=== PATIENT | female | born 1945 | race Hispanic/Latino ===

== ENCOUNTER 2018-12-20 10:04 | Inpatient (IN) | payer MEDICARE ==
[~2018-12-20 10:04] MED LIST: ZEMURON IV ONE
[2018-12-20] MEDS ORDERED: ZOFRAN IV PRN (11:14)
[2018-12-20] MEDS ORDERED: SODIUM CHLORIDE FLUSH SYRINGE 10 ML IV PRN (11:14)
[2018-12-20] MEDS ORDERED: MORPHINE IV PRN (11:14)
[2018-12-20] MEDS ORDERED: NACL 0.9% 1000 ML 1,000 ML IV SCH (12:00)
[2018-12-20] MEDS ORDERED: ANCEF/STERILE WATER 2 GM/20 ML 2 GM/20 ML SYRINGE IV NR (12:00)
--- NOTE | 2018-12-20 18:09 | History and Physical Report ---
History of Present Illness Date of examination: 12/20/18 Date of admission: 12/20/2018 Chief complaint: Left foot pain History of present illness: The patient is a 73-year-old female with a history of tobacco abuse and peripheral vascular disease who had an aorto bifemoral bypass in 2002. She states that approximately 1 month ago she began experiencing pain in her left foot. Over the past week the pain has progressively worsened and is associated with numbness and blue toes. On Monday she went to her primary care physician and upon evaluation he sent her to the emergency department at the [facility] in [place]. Her workup there included an ultrasound of her bilateral lower extremities which revealed occlusion of her left limb of aortobifemoral bypass as well as bilateral SFA occlusions. She also had a CTA of her abdomen and pelvis with runoff that confirmed these findings. Additionally she had an echo for heart that revealed normal heart function. She has no additional complaints at this time. Past History Past Surgical History: cholecystectomy, hysterectomy ([facility]), total hip replacement, Other (Aortobifemoral Bypass (2002), back surgery x 4) Social history: smoking. denies: alcohol abuse, prescription drug abuse, IV drug use Medications and Allergies Allergies Allergy/AdvReac Type Severity Reaction Status Date / Time prednisone Allergy Unknown Verified 12/20/18 11:49 morphine AdvReac confusion Verified 12/20/18 11:49 Active Meds: Active Medications Acetaminophen (Tylenol) 650 mg PO Q4H PRN PRN Reason: Pain MILD(1-3)/Fever >100.5/SKELTON Sodium Chloride (Nacl 0.9% 1000 Ml) 1,000 mls @ 100 mls/hr IV DIRECT BELEN Cefazolin Sodium (Ancef/Sterile Water 2 Gm/20 Ml) 2 gm in 20 mls @ 80 mls/hr IV PREOP NR; Protocol Stop: 12/20/18 23:14 Ondansetron HCl (Zofran) 4 mg IV Q8H PRN PRN Reason: Nausea And Vomiting Sodium Chloride (Sodium Chloride Flush Syringe 10 Ml) 10 ml IV BID BELEN Sodium Chloride (Sodium Chloride Flush Syringe 10 Ml) 10 ml IV PRN PRN PRN Reason: LINE FLUSH Review of Systems All systems: negative Exam - Constitutional General appearance: Present: no acute distress - EENT ENT: hearing decreased - Neck Neck: Present: supple - Cardiovascular Rhythm: regular - Extremities Extremities: pulses intact (right femoral pulse) Extremity abnormal: cyanosis (of all toes on the left foot), cold (all left toes are cool), pulses diminished (nonpalpable left femoral pulse, no palpable pedal pulses) - Abdominal General gastrointestinal: Present: soft, non-tender (well-healed transverse incision) Female genitourinary: Present: deferred - Rectal Rectal Exam: deferred - Musculoskeletal Musculoskeletal: left sided weakness (left foot motor intact however decreased with minimal toe movement) - Neurologic Neurologic: other (sensation intact left foot) Assessment and Plan The patient is a 73-year-old female with a history of an aortobifemoral bypass in 2002 with occlusion of the left limb of the bypass. She has subacute ischemia with a threatened limb. She is in need of improved arterial flow and requires a right femoral artery to left femoral artery bypass to improve arterial flow to the profunda artery. I discussed this with the patient as well as her and children. They all expressed understanding including the risk, benefits, and alternatives. They have chosen to proceed with the operation at this time.
[2018-12-20] MEDS ORDERED: DIPRIVAN 10 MG/ML IV ONE (19:29)
[2018-12-20] MEDS ORDERED: SUBLIMAZE ONE (19:29)
[2018-12-20] MEDS ORDERED: AMIDATE IV ONE (19:29)
[2018-12-20] MEDS ORDERED: NACL P/F VIAL (10 ML) 10 ML ONE ×2 (19:32→21:24)
[2018-12-20 20:05] LABS: Basophils # (Auto) 0.1 K/mm3 (0.0-0.1); Basophils % (Auto) 0.9 % (0.0-1.8); Eosinophils % (Auto) 0.5 % (0.0-4.3); Hematocrit 40.1 % (30.3-42.9); Hemoglobin 13.5 gm/dl (10.1-14.3); Lymphocytes # (Auto) 2.5 K/mm3 (1.2-5.4); Lymphocytes % (Auto) 30.8 % (13.4-35.0); Mean Corpuscular HGB Conc 34 % (30-34); Mean Corpuscular Volume 101 fl (79-97); Monocytes # (Auto) 0.5 K/mm3 (0.0-0.8); Monocytes % (Auto) 6.8 % (0.0-7.3); Platelet Count 308 K/mm3 (140-440); Red Blood Count 3.95 M/mm3 (3.65-5.03); Red Cell Distribution Width 16.3 % (13.2-15.2)
[2018-12-20 20:15] LABS: INR 0.94 (0.87-1.13)
[2018-12-20 20:16] LABS: Partial Thromboplastin Time 22.2 Sec. (24.2-36.6)
[2018-12-20] MEDS ORDERED: LACTATED RINGERS 1,000 ML ONE (20:47)
[2018-12-20] MEDS ORDERED: NACL 0.9% 500 ML 500 ML ONE ×2 (21:09→21:23)
[2018-12-20] MEDS ORDERED: NITROGLYCERIN SYRINGE 3 ML ONE (21:10)
[2018-12-20] MEDS ORDERED: NACL 0.9% 500 ML IRRIGATION ONE (21:15)
[2018-12-20] MEDS ORDERED: HEPARIN 10,000 UNITS/10 ML IR ONE (21:15)
[2018-12-20] MEDS ORDERED: NACL 0.9% IR ONE (21:15)
[2018-12-20] MEDS ORDERED: NACL BACTERIOSTATIC INFILTRATI ONE (21:15)
[2018-12-20] MEDS ORDERED: RIFADIN IV ONE (21:15)
[2018-12-20 21:17] LABS: BUN/Creatinine Ratio 39; Blood Urea Nitrogen 27 mg/dL (7-17); Calcium 10.9 mg/dL (8.4-10.2); Hemolysis Index 7
[2018-12-20] MEDS ORDERED: HEPARIN 10,000 UNITS/10 ML ONE (21:23)
[2018-12-20] MEDS ORDERED: RIFADIN ONE (21:24)
--- NOTE | 2018-12-20 22:32 | Anesthesia Consultation ---
Anesthesia Consult and Med Hx Date of service: 12/20/18 - Airway Anesthetic Teeth Evaluation: Poor ROM Head & Neck: Adequate Mental/Hyoid Distance: Adequate Mallampati Class: Class II Intubation Access Assessment: Probably Good - Pulmonary Exam CTA: No (diffuse wheezing) - Cardiac Exam Cardiac Exam: No Murmur (irregular rhythm) - Pre-Operative Health Status ASA Pre-Surgery Classification: ASA3, Emergency Proposed Anesthetic Plan: General - Pulmonary Hx Smoking: Yes (1/4PPD x55yrs) SOB: Yes (patient denies but family reports dyspnea with ADLs) COPD: Yes (patient denies but noted in previous records on paper chart) Home Oxygen Therapy: No - Cardiovascular System Hx Hypertension: Yes (takes multiple antihypertensive agents) Hx Heart Attack/AMI: No Hx Percutaneous Transluminal Coronary Angioplasty (PTCA): No Hx Cardia Arrhythmia: Yes (outside EKG read NSR (actual EKG not available) but A-fib noted here) Hx Pacemaker: No Hx Internal Defibrillator: No Hx Peripheral Vascular Disease: Yes (PAD s/p previous fem-fem bypass w/ occluded graft and ischemic limb) - Central Nervous System Hx Seizures: No CVA: No - Gastrointestinal Hx Gastroesophageal Reflux Disease: Yes (controlled) - Endocrine Hx Renal Disease: No Hx Liver Disease: No Hx Insulin Dependent Diabetes: No Hx Non-Insulin Dependent Diabetes: No Hx Thyroid Disease: No - Hematic Hx Anemia: No - Other Systems Hx Obesity: No - Additional Comments Anesthesia Medical History Comments: No hx anesthetic complications. Reviewed medical records on paper chart from [facility]. Discussed anesthetic plan, including possible blood transfusion and possible post-op ventilation and ICU admission with patient and family.T&C [id number] ordered on hold for OR.
--- NOTE | 2018-12-20 22:35 | Anesthesia Day of Surgery ---
Anesthesia Day of Surgery - Day of Surgery Patient Examined: Yes Patient H&P Reviewed: Yes Patient is NPO: Yes
[2018-12-20] MEDS ORDERED: PHENYLEPHRINE/NS Syringe 1,000 MCG/10 ML IV ONE ×2 (23:02)
[2018-12-21] MEDS ORDERED: ZOFRAN ONE (00:02)
[2018-12-21] MEDS ORDERED: BLOXIVERZ ONE (00:04)
[2018-12-21] MEDS ORDERED: ROBINUL ONE (00:04)
--- NOTE | 2018-12-21 00:31 | Operative Report ---
Operative Report Operative Report: Date of Procedure: 12/20/2018 Pre-operative Diagnosis: Occlusion of Left Limb of Aortobifemoral Graft With Le ft Lower Extremity Ischemia Post-operative Diagnosis: Same Procedure(s): 1. Bilateral Redo Femoral Artery Exposure 2. Open Thrombectomy of Left Profunda Artery with 2 Jimenez 3. Open Thrombectomy of Right Limb of Aortobifemoral Graft with 6/10 Jimenez Graft Adherent Thrombectomy Catheter 4. Right Femoral Artery to Left Femoral Artery Bypass with 8 mm Ringed Propaten Graft Surgeon: Piyush North M.D. Case Reviewer: None Anesthesia: Gen. Endotracheal Anesthesia EBL: 50 mL Counts: Correct Complications: None Condition: Stable Findings: Patient had completely thrombosed and occluded origin of her left profunda and an occluded left SFA. There was some thrombus within the right limb of the aortobifemoral graft. After completion of the graft creation there was an excellent pulse and Doppler signal in the distal left profunda. Specimen: Plaque from the left femoral artery and portion of the left aortobifemoral bypass graft sent to pathology. Indication: The patient is a 73-year-old female who presented with complaints of worsening rest pain with associated numbness and decreased movement of her left foot. She was found to have occlusion of the left limb of aortobifemoral bypass graft and is in need of improved flow to her left lower extremity. She was offered a right femoral artery to left femoral artery bypass. She was given the risks, benefits, and alternative procedures and consented to procedure. Description of Procedure: The patient was brought to the operating room and laid in supine position. After general endotracheal anesthesia was achieved and a longitudinal incision was created in her right groin and carried down to the anastomosis of her aortobifemoral bypass graft in the femoral artery. The graft was dissected circumferentially, just proximal to the anastomosis and controlled the vessel loop. I then dissected out the common femoral artery and controlled this with a vessel loop. The profunda as well as SFA were then dissected circumferentially control vessels. I dissected the anterior abdominal wall and created a partial tunnel towards the left groin cephalad to the pubic symphysis. I then created a longitudinal incision in the right groin and carried this down to the bypass graft and the anastomosis. I dissected out the common femoral artery and dissected and circumferentially controlled with vessel loop. I dissected out the profunda as well as the SFA and controlled both vessels. I then dissected along the anterior abdominal wall and created a tunnel towards the right groin. Once I was able to connect the tunnel from the right groin I the 8 mm ringed Propaten Graft through the tunnel and ensured that it was not twisted or kinked. At this point I systemically heparinized the patient and then clamped the vesse ls and the left groin. I used an 11 blade to open the graft on the left femoral anastomosis and encountered significant amount of thrombus. Upon removing the soft thrombus noted that the SFA and profunda were both occluded with plaque as well as strong was. I used a freer to remove the plaque and then used a hemostat to remove the first 4 cm of plaque from the chronically occluded SFA. I then passed the 2 Jimenez down the profunda and upon removing additional thrombus there was backbleeding noted. I made an additional pass and there was no additional thrombus soft flushed the artery with heparinized saline and reclamped the artery. I transected the graft off of the artery and then beveled the Propaten Graft and created an end to end anastomosis using 2 5-0 Prolene suture in running fashion. I then flashed the profunda and reclamped it. I then cut the graft to length in the right groin and remove the rings. I clamped the common femoral artery, SFA, profunda. I then clamped the graft and using 11 blade to make an arteriotomy and upon opening the graft are noted some fresh thrombus. I passed the 6/10 Jimenez Graft Adherent Thrombectomy Catheter and retrieved additional thrombus. I then reclamped the graft and then used the Mcfarland scissors to cut out a wedge of the graft to sew the anastomosis and assure that the graft did not create a significant bulge in the groin secondary to the patient's thin body habitus. I then created an end-to-side anastomosis using 2 5-0 Prolene in running fashion. Prior to completing the anastomosis flashed all vessels including the left profunda and reclamped them. I then flushed the graft by saline and completed the anastomosis. Upon completing the anastomosis I released all clamps allowing flow into the left profunda which had a palpable pulse and a multiphasic signal distally. Hemostasis within both groins was achieved with a combination of quick clot, FloSeal, and direct pressure. Once hemostasis was achieved both groin incisions were anesthetized with 0.5% Marcaine and closed in 3 layers using 3-0 Vicryl in a fashion to reapproximate the fascia, 3-0 Vicryl running fashion the deep dermal layer, and a 4-0 Monocryl in running fashion subcuticular. The wounds were then dressed with Dermabond. The patient tolerated the procedure well. All sponge, needle, and instrument counts were correct. The patient was taken to the recovery area stable condition.
[2018-12-21] MEDS ORDERED: SUBLIMAZE ONE (00:37)
[2018-12-21] MEDS ORDERED: NORMODYNE IV ONE (00:37)
[2018-12-21] MEDS ORDERED: NARCAN 0.4 MG/1 ML IV PRN (00:41)
[2018-12-21] MEDS ORDERED: ZOFRAN IV PRN (00:41)
[2018-12-21] MEDS ORDERED: APRESOLINE IV PRN (00:44)
[2018-12-21] MEDS ORDERED: NORMODYNE IV PRN (00:45)
--- NOTE | 2018-12-21 01:24 | Post Anesthesia Evaluation ---
- Post Anesthesia Evaluation Patient Participated: Yes Airway Patent: Yes Stable Respiratory Function: Yes Nausea/Vomiting: No Temp > 96.8F: Yes Pain Manageable: Yes Adequeate Hydration: Yes Anesthesia Complications: No Block Receding Appropriately: Not Applicable Patient on Ventilator: No Other Comments: Awake, alert, VSS w/ HTN improved after IV antiemetics. SpO2 >92% on 3L NC. Pain well controlled. Palpable R and doppler L pedal pulses. OK for transfer to ICU.
[2018-12-21] MEDS: CATAPRES PO SCH ×4 (02:47→17:48)
[2018-12-21] MEDS: TYLENOL PO PRN (02:47)
[2018-12-21] MEDS: ANCEF/NS 1 GM/50 ML 1 GM/50 ML BAG IV SCH ×2 (02:48→09:23)
[2018-12-21] MEDS: NORCO 5/325 PO PRN ×3 (06:36→21:28)
[2018-12-21] MEDS: SODIUM CHLORIDE FLUSH SYRINGE 10 ML IV SCH ×2 (07:30→09:23)
--- NOTE | 2018-12-21 09:40 | Progress Note ---
Assessment and Plan The patient is doing well from a vascular standpoint. Can likely be transferred out of the unit later on today. Patient will need evaluation and treatment with physical therapy. Subjective Date of service: 12/21/18 Principal diagnosis: PVD with rest pain Interval history: Patient status post femorofemoral bypass with femoral endarterectomy. Her left leg is warm with palpable pulses. Her left foot has a minimal amount of bluish discoloration secondary to reperfusion however, it is very warm. The discoloration resolves with elevation. Her groin incisions are soft bilaterally. Objective - Constitutional Vitals: Vital Signs - 12hr 12/21/18 12/21/18 12/21/18 00:28 00:33 00:38 Temperature 97.5 F L Pulse Rate 80 75 71 Respiratory 21 21 20 Rate Blood Pressure 203/89 191/79 158/74 O2 Sat by Pulse 95 97 97 Oximetry 12/21/18 12/21/18 12/21/18 00:43 00:53 00:58 Temperature 98.0 F Pulse Rate 74 70 72 Respiratory 21 22 20 Rate Blood Pressure 157/64 161/55 146/48 O2 Sat by Pulse 97 97 97 Oximetry 12/21/18 12/21/18 12/21/18 01:17 02:47 02:48 Temperature 98 F 98.5 F Pulse Rate 69 Respiratory Rate Blood Pressure 139/52 O2 Sat by Pulse Oximetry 12/21/18 12/21/18 12/21/18 03:33 05:38 05:40 Temperature Pulse Rate 76 76 76 Respiratory 18 22 Rate Blood Pressure O2 Sat by Pulse 98 98 Oximetry 12/21/18 12/21/18 12/21/18 05:51 06:01 06:11 Temperature Pulse Rate 79 75 70 Respiratory 17 23 21 Rate Blood Pressure O2 Sat by Pulse 99 99 100 Oximetry 12/21/18 12/21/18 12/21/18 06:21 06:31 06:37 Temperature Pulse Rate 72 76 74 Respiratory 18 19 Rate Blood Pressure 160/54 O2 Sat by Pulse 99 100 Oximetry 12/21/18 12/21/18 12/21/18 06:41 06:51 07:00 Temperature Pulse Rate 66 71 76 Respiratory 20 24 12 Rate Blood Pressure 160/54 160/54 146/81 O2 Sat by Pulse 100 100 98 Oximetry 12/21/18 12/21/18 12/21/18 07:11 07:21 07:31 Temperature Pulse Rate 76 71 68 Respiratory 21 22 23 Rate Blood Pressure 146/81 160/54 160/54 O2 Sat by Pulse 99 100 100 Oximetry 12/21/18 12/21/18 12/21/18 07:40 07:50 08:00 Temperature 98.1 F Pulse Rate 69 69 73 Respiratory 23 21 22 Rate Blood Pressure 146/81 146/81 165/56 O2 Sat by Pulse 99 99 98 Oximetry 12/21/18 08:11 Temperature Pulse Rate 73 Respiratory 17 Rate Blood Pressure 136/47 O2 Sat by Pulse 99 Oximetry General appearance: Present: no acute distress - EENT Eyes: EOM intact ENT: hearing intact - Neck Neck: supple, normal ROM - Respiratory Respiratory effort: normal - Breasts Breasts: deferred - Cardiovascular Rhythm: regular Extremities: abnormal - Gastrointestinal General gastrointestinal: Present: deferred Rectal Exam: deferred - Genitourinary Female genitourinary: deferred - Psychiatric Psychiatric: appropriate mood/affect, cooperative - Labs CBC & Chem 7: 12/20/18 19:54 12/20/18 19:54 Labs: Abnormal lab results 12/20/18 12/20/18 12/20/18 Range/Units 19:54 19:54 19:54 MCV 101 H (79-97) fl MCH 34 H (28-32) pg RDW 16.3 H (13.2-15.2) % APTT 22.2 L (24.2-36.6) Sec. Sodium 134 L (137-145) mmol/L Chloride 92.0 L (98-107) mmol/L BUN 27 H (7-17) mg/dL Glucose 117 H (65-100) mg/dL Calcium 10.9 H (8.4-10.2) mg/dL Crossmatch 12/20/18 Range/Units 21:05 MCV (79-97) fl MCH (28-32) pg RDW (13.2-15.2) % APTT (24.2-36.6) Sec. Sodium (137-145) mmol/L Chloride (98-107) mmol/L BUN (7-17) mg/dL Glucose (65-100) mg/dL Calcium (8.4-10.2) mg/dL Crossmatch See Detail Medications & Allergies - Medications Allergies/Adverse Reactions: Allergies prednisone Allergy (Verified 12/20/18 11:49) Unknown morphine Adverse Reaction (Verified 12/20/18 11:49) confusion Home Medications: Home Medications Medication Instructions Recorded Confirmed Last Taken Type Atenolol 100 mg PO DAILY MDD Hypertension 12/21/18 12/21/18 1 Day Ago History ~12/20/18 Atenolol 100 ng PO DAILY 12/21/18 12/21/18 1 Day Ago History ~12/20/18 Dicyclomine HCl 10 mg PO TID MDD IBS 12/21/18 12/21/18 1 Day Ago History ~12/20/18 10 mg LORazepam [Ativan] 1 mg PO 4XD PRN 12/21/18 12/21/18 1 Day Ago History ~12/20/18 Omeprazole 400 mg PO DAILY 12/21/18 12/21/18 1 Day Ago History ~12/20/18 Ondansetron [Zofran ODT TAB] 12/21/18 Unknown History Ondansetron [Zofran ODT TAB] 12/21/18 2 Days Ago History ~12/19/18 4 mg Ondansetron [Zofran ODT TAB] 4 mg PO Q4H PRN 12/21/18 12/21/18 2 Days Ago History ~12/19/18 Ondansetron [Zofran ODT TAB] 4 mg PO Q4HR PRN 12/21/18 12/21/18 2 Days Ago History ~12/19/18 Sertraline HCl 100 mg PO DAILY 12/21/18 12/21/18 1 Day Ago History ~12/20/18 amLODIPine [Norvasc] 12/21/18 1 Day Ago History ~12/20/18 5 mg amLODIPine [Norvasc] 5 mg PO QDAY 12/21/18 12/21/18 1 Day Ago History ~12/20/18 5 mg azaTHIOprine [Imuran] 150 mg PO DAILY 12/21/18 12/21/18 1 Day Ago History ~12/20/18 cloNIDine [Catapres] 12/21/18 1 Day Ago History ~12/20/18 cloNIDine [Catapres] 0.2 mg PO DAILY 12/21/18 12/21/18 1 Day Ago History ~12/20/18 0.2 mg Active Medications: Generic Name Dose Route Start Last Admin Trade Name Freq PRN Reason Stop Dose Admin Acetaminophen 650 mg 12/20/18 11:14 12/21/18 02:47 Tylenol PO 650 mg Q4H PRN Administration Pain MILD(1-3)/Fever >100.5/SKELTON Acetaminophen/Hydrocodone Bitart 1 each 12/21/18 00:43 12/21/18 06:36 Peggs 5/325 PO 1 each Q4H PRN Administration Pain, Moderate (4-6) Apixaban 2.5 mg 12/21/18 10:00 12/21/18 09:23 Eliquis PO 2.5 mg Q12HR BELEN Administration Protocol Clonidine HCl 0.1 mg 12/21/18 01:00 12/21/18 06:37 Catapres PO 0.1 mg Q6HR BELEN Administration Clopidogrel Bisulfate 75 mg 12/21/18 10:00 12/21/18 09:22 Plavix PO 75 mg QDAY BELEN Administration Hydralazine HCl 20 mg 12/21/18 00:44 Apresoline IV Q4H PRN Hypertension Sodium Chloride 1,000 mls @ 75 mls/hr 12/20/18 12:00 12/21/18 02:48 Nacl 0.9% 1000 Ml IV 75 mls/hr DIRECT BELEN Administration Cefazolin Sodium 1 gm in 50 mls @ 100 mls/hr 12/21/18 02:00 12/21/18 09:23 Ancef/Ns 1 Gm/50 Ml IV 12/21/18 10:29 100 mls/hr Q8H BELEN Administration Labetalol HCl 20 mg 12/21/18 00:45 Normodyne IV Q2H PRN Hypertension Naloxone HCl 0.1 mg 12/21/18 00:41 Narcan 0.4 Mg/1 Ml IV Q2MIN PRN Res Rate </= 8 or 02 SAT < 92% Ondansetron HCl 4 mg 12/20/18 11:14 Zofran IV Q8H PRN Nausea And Vomiting Ondansetron HCl 4 mg 12/21/18 00:41 Zofran IV Q8H PRN Nausea And Vomiting Sodium Chloride 10 ml 12/20/18 22:00 12/21/18 09:23 Sodium Chloride Flush Syringe 10 Ml IV 10 ml BID BELEN Administration Sodium Chloride 10 ml 12/20/18 11:14 Sodium Chloride Flush Syringe 10 Ml IV PRN PRN LINE FLUSH
[2018-12-21] MEDS ORDERED: PLAVIX PO SCH (10:00)
[2018-12-21] MEDS ORDERED: ELIQUIS PO SCH (10:00)
[2018-12-21] MEDS ORDERED: ZOFRAN ODT PO PRN ×2 (11:11)
[2018-12-21] MEDS ORDERED: MELATONIN PO PRN (11:16)
--- NOTE | 2018-12-21 11:46 | Short Stay Summary ---
Short Stay Documentation Date of service: 12/21/18 Narrative H&P: See H&P - History Past Surgical History: cholecystectomy, hysterectomy ([facility]), total hip replacement, Other (Aortobifemoral Bypass (2002), back surgery x 4) Social history: smoking, no alcohol abuse, no prescription drug abuse, no IV drug use - Allergies and Medications Current Medications: Allergies prednisone Allergy (Verified 12/20/18 11:49) Unknown morphine Adverse Reaction (Verified 12/20/18 11:49) confusion Home Medications Medication Instructions Recorded Confirmed Last Taken Type Atenolol 100 mg PO DAILY MDD Hypertension 12/21/18 12/21/18 1 Day Ago History ~12/20/18 Atenolol 100 ng PO DAILY 12/21/18 12/21/18 1 Day Ago History ~12/20/18 Dicyclomine HCl 10 mg PO TID MDD IBS 12/21/18 12/21/18 1 Day Ago History ~12/20/18 10 mg HYDROcodone/APAP 5-325 [[place] 1 each PO Q6HR PRN #40 tablet 12/21/18 Unknown Rx 5/325] LORazepam [Ativan] 1 mg PO 4XD PRN 12/21/18 12/21/18 1 Day Ago History ~12/20/18 Omeprazole 400 mg PO DAILY 12/21/18 12/21/18 1 Day Ago History ~12/20/18 Ondansetron [Zofran ODT TAB] 12/21/18 Unknown History Ondansetron [Zofran ODT TAB] 12/21/18 2 Days Ago History ~12/19/18 4 mg Ondansetron [Zofran ODT TAB] 4 mg PO Q4H PRN 12/21/18 12/21/18 2 Days Ago History ~12/19/18 Ondansetron [Zofran ODT TAB] 4 mg PO Q4HR PRN 12/21/18 12/21/18 2 Days Ago History ~12/19/18 Rivaroxaban [Xarelto] 2.5 mg PO DAILY #90 tablet 12/21/18 Unknown Rx Sertraline HCl 100 mg PO DAILY 12/21/18 12/21/18 1 Day Ago History ~12/20/18 amLODIPine [Norvasc] 12/21/18 1 Day Ago History ~12/20/18 5 mg amLODIPine [Norvasc] 5 mg PO QDAY 12/21/18 12/21/18 1 Day Ago History ~12/20/18 5 mg azaTHIOprine [Imuran] 150 mg PO DAILY 12/21/18 12/21/18 1 Day Ago History ~12/20/18 cloNIDine [Catapres] 12/21/18 1 Day Ago History ~12/20/18 cloNIDine [Catapres] 0.2 mg PO DAILY 12/21/18 12/21/18 1 Day Ago History ~12/20/18 0.2 mg Active Medications Acetaminophen (Tylenol) 650 mg PO Q4H PRN PRN Reason: Pain MILD(1-3)/Fever >100.5/[place] Last Admin: 12/21/18 02:47 Dose: 650 mg Documented by: Acetaminophen/Hydrocodone Bitart ([place] 5/325) 1 each PO Q4H PRN PRN Reason: Pain, Moderate (4-6) Last Admin: 12/21/18 06:36 Dose: 1 each Documented by: Amlodipine Besylate (Norvasc) 5 mg PO QDAY [facility] Amlodipine Besylate (Norvasc) 5 mg PO DAILY [facility] Aspirin (Halfprin Ec) 81 mg PO QDAY [facility] Atenolol (Tenormin) 100 mg PO QDAY [facility] Azathioprine (Imuran) 150 mg PO DAILY [facility] Clonidine HCl (Catapres) 0.1 mg PO Q6HR [facility] Last Admin: 12/21/18 06:37 Dose: 0.1 mg Documented by: Hydralazine HCl (Apresoline) 20 mg IV Q4H PRN PRN Reason: Hypertension Sodium Chloride (Nacl 0.9% 1000 Ml) 1,000 mls @ 75 mls/hr IV DIRECT [facility] Last Admin: 12/21/18 02:48 Dose: 75 mls/hr Documented by: Labetalol HCl (Normodyne) 20 mg IV Q2H PRN PRN Reason: Hypertension Lorazepam (Ativan) 1 mg PO 4XD PRN PRN Reason: Anxiety Melatonin (Melatonin) 5 mg PO QHS PRN PRN Reason: Sleep Miscellaneous Medication (Atenolol) 100 ng PO DAILY [facility] Miscellaneous Medication (Dicyclomine Hcl) 10 mg PO TID [facility] Miscellaneous Medication (Omeprazole [Omeprazole]) 400 mg PO DAILY [facility] Naloxone HCl (Narcan 0.4 Mg/1 Ml) 0.1 mg IV Q2MIN PRN PRN Reason: Res Rate </= 8 or 02 SAT < 92% Ondansetron HCl (Zofran) 4 mg IV Q8H PRN PRN Reason: Nausea And Vomiting Ondansetron HCl (Zofran) 4 mg IV Q8H PRN PRN Reason: Nausea And Vomiting Ondansetron HCl (Zofran Odt) 4 mg PO Q4HR PRN PRN Reason: Nausea And Vomiting Rivaroxaban (Xarelto) 2.5 mg PO QDAY BELEN; Protocol Sodium Chloride (Sodium Chloride Flush Syringe 10 Ml) 10 ml IV BID [facility]EN Last Admin: 12/21/18 09:23 Dose: 10 ml Documented by: Sodium Chloride (Sodium Chloride Flush Syringe 10 Ml) 10 ml IV PRN PRN PRN Reason: LINE FLUSH - Physical exam Breasts: deferred Extremities: abnormal - Hospital course Hospital course: The patient was admitted and taken to the OR for: Date of Procedure: 12/20/2018 Pre-operative Diagnosis: 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 Bilateral Redo Femoral Artery Exposure 2. Open Thrombectomy of Left Profunda Artery with 2 Jimenez 3. Open Thrombectomy of Right Limb of Aortobifemoral Graft with 6/10 Jimenez Graft Adherent Thrombectomy Catheter 4. Right Femoral Artery to Left Femoral Artery Bypass with 8 mm Ringed Propaten Graft Surgeon: Piyush North M.D. Active Directory Engineer: None Anesthesia: Gen. Endotracheal Anesthesia EBL: 50 mL Counts: Correct Complications: None Condition: Stable Findings: Patient had completely thrombosed and occluded origin of her left profunda and an occluded left SFA. There was some thrombus within the right limb of the aortobifemoral graft. After completion of the graft creation there was an excellent pulse and Doppler signal in the distal left profunda. Specimen: Plaque from the left femoral artery and portion of the left aortobifemoral bypass graft sent to pathology. Indication: The patient is a 73-year-old female who presented with complaints of worsening rest pain with associated numbness and decreased movement of her left foot. She was found to have occlusion of the left limb of aortobifemoral bypass graft and is in need of improved flow to her left lower extremity. She was offered a right femoral artery to left femoral artery bypass. She was given the risks, benefits, and alternative procedures and consented to procedure. Description of Procedure: The patient was brought to the operating room and laid in supine position. After general endotracheal anesthesia was achieved and a longitudinal incision was created in her right groin and carried down to the anastomosis of her aortobifemoral bypass graft in the femoral artery. The graft was dissected circumferentially, just proximal to the anastomosis and controlled the vessel loop. I then dissected out the common femoral artery and controlled this with a vessel loop. The profunda as well as SFA were then dissected circumferentially control vessels. I dissected the anterior abdominal wall and created a partial tunnel towards the left groin cephalad to the pubic symphysis. I then created a longitudinal incision in the right groin and carried this down to the bypass graft and the anastomosis. I dissected out the common femoral artery and dissected and circumferentially controlled with vessel loop. I dissected out the profunda as well as the SFA and controlled both vessels. I then dissected along the anterior abdominal wall and created a tunnel towards the right groin. Once I was able to connect the tunnel from the right groin I the 8 mm ringed Propaten Graft through the tunnel and ensured that it was not twisted or kinked. At this point I systemically heparinized the patient and then clamped the vessels and the left groin. I used an 11 blade to open the graft on the left femoral anastomosis and encountered significant amount of thrombus. Upon removing the soft thrombus noted that the SFA and profunda were both occluded with plaque as well as strong was. I used a freer to remove the plaque and then used a hemostat to remove the first 4 cm of plaque from the chronically occluded SFA. I then passed the 2 Jimenez down the profunda and upon removing additional thrombus there was backbleeding noted. I made an additional pass and there was no additional thrombus soft flushed the artery with heparinized saline and reclamped the artery. I transected the graft off of the artery and then beveled the Propaten Graft and created an end to end anastomosis using 2 5- 0 Prolene suture in running fashion. I then flashed the profunda and reclamped it. I then cut the graft to length in the right groin and remove the rings. I clamped the common femoral artery, SFA, profunda. I then clamped the graft and using 11 blade to make an arteriotomy and upon opening the graft are noted some fresh thrombus. I passed the 6/10 Jimenez Graft Adherent Thrombectomy Catheter and retrieved additional thrombus. I then reclamped the graft and then used the Mcfarland scissors to cut out a wedge of the graft to sew the anastomosis and assure that the graft did not create a significant bulge in the groin secondary to the patient's thin body habitus. I then created an end-to-side anastomosis using 2 5-0 Prolene in running fashion. Prior to completing the anastomosis flashed all vessels including the left profunda and reclamped them. I then flushed the graft by saline and completed the anastomosis. Upon completing the anastomosis I released all clamps allowing flow into the left profunda which had a palpable pulse and a multiphasic signal distally. Hemostasis within both groins was achieved with a combination of quick clot, FloSeal, and direct pressure. Once hemostasis was achieved both groin incisions were anesthetized with 0.5% Marcaine and closed in 3 layers using 3-0 Vicryl in a fashion to reapproximate the fascia, 3-0 Vicryl running fashion the deep dermal layer, and a 4-0 Monocryl in running fashion subcuticular. The wounds were then dressed with Dermabond. The patient tolerated the procedure well. All sponge, needle, and instrument counts were correct. The patient was taken to the recovery area stable condition. Post-op she did well and was transferred out of the unit on post-op day 1. She continued to do well and was clinically ready for discharge on POD 2. - Disposition Condition at discharge: Good Disposition: [id number] TO HOME OR SELFCARE Short Stay Discharge Plan Activity: other (No strenuous activity for 2 weeks) Wound: open to air, keep clean and dry, other (okay to shower and wash with soap and water but do not soak in water) Follow up with: PIYUSH NORTH MD [Staff Physician] - 14 Days Prescriptions: HYDROcodone/APAP 5-325 [[place] 5/325] 1 each PO Q6HR PRN #40 tablet PRN Reason: Pain Rivaroxaban [Xarelto] 2.5 mg PO DAILY #90 tablet
[2018-12-21] MEDS ORDERED: DICYCLOMINE HCL 10 MG PO SCH (14:00)
[2018-12-21] MEDS: ATIVAN PO PRN (16:05)
[2018-12-21] MEDS: BENTYL PO SCH ×2 (21:29→23:06)
[2018-12-22] MEDS: CATAPRES PO SCH ×2 (00:25→05:22)
[2018-12-22 05:15] LABS: Hematocrit 30.3 % (30.3-42.9); Hemoglobin 10.2 gm/dl (10.1-14.3)
[2018-12-22] MEDS: TYLENOL PO PRN (05:27)
[2018-12-22 06:02] LABS: BUN/Creatinine Ratio 58; Blood Urea Nitrogen 23 mg/dL (7-17); Calcium 9.7 mg/dL (8.4-10.2); Hemolysis Index 4
[2018-12-22] MEDS ORDERED: IMURAN PO SCH (10:00)
[2018-12-22] MEDS ORDERED: ATENOLOL 100 MG PO SCH (10:00)
[2018-12-22] MEDS ORDERED: TENORMIN PO SCH (10:00)
[2018-12-22] MEDS ORDERED: OMEPRAZOLE PO SCH (10:00)
[2018-12-22] MEDS ORDERED: HALFPRIN EC PO SCH (10:00)
[2018-12-22] MEDS ORDERED: PROTONIX PO SCH ×2 (10:00)
[2018-12-22] MEDS ORDERED: XARELTO PO SCH (10:00)
[2018-12-22] MEDS ORDERED: ATENOLOL PO SCH (10:00)
[2018-12-22] MEDS ORDERED: NORVASC PO SCH ×2 (10:00)
[2018-12-22] MEDS: BENTYL PO SCH (10:36)
[2018-12-22] MEDS: ATIVAN PO PRN (10:42)
[2018-12-22 10:43] VITALS: BP 140/48
[2018-12-22] MEDS ORDERED: ULTRAM PO PRN (11:00)
[2018-12-22] MEDS: NORCO 5/325 PO PRN (11:50)
--- NOTE | 2018-12-22 12:12 | Progress Note ---
Subjective Date of service: 12/22/18 Principal diagnosis: PVD with rest pain Interval history: s/p Femoral to Femoral Bypass with PTFE patient doing well both feet warm and well perfused groin incisions c/d/i with suture pain controlled with oral meds patient unable to sleep with [place] and prefers tramadol, will make appropriate changes patient ambulating without difficulty ok to d/c home Objective - Constitutional Vitals: Vital Signs - 12hr 12/22/18 12/22/18 12/22/18 00:10 00:25 03:00 Temperature 98.3 F Pulse Rate 97 H 92 H 90 Respiratory 18 Rate Blood Pressure 172/52 172/52 O2 Sat by Pulse 90 Oximetry 12/22/18 12/22/18 12/22/18 04:24 05:22 05:27 Temperature 98.1 F Pulse Rate 90 90 Respiratory 18 20 Rate Blood Pressure 163/68 163/68 O2 Sat by Pulse 98 Oximetry 12/22/18 12/22/18 12/22/18 07:19 10:00 10:34 Temperature 98.5 F Pulse Rate 75 Respiratory 20 18 Rate Blood Pressure 130/46 140/48 O2 Sat by Pulse 98 95 Oximetry 12/22/18 11:00 Temperature Pulse Rate 74 Respiratory Rate Blood Pressure O2 Sat by Pulse Oximetry - Labs CBC & Chem 7: 12/22/18 04:30 12/22/18 04:30 Labs: Abnormal lab results 12/22/18 Range/Units 04:30 BUN 23 H (7-17) mg/dL Creatinine 0.4 L (0.7-1.2) mg/dL Glucose 108 H (65-100) mg/dL Medications & Allergies - Medications Allergies/Adverse Reactions: Allergies prednisone Allergy (Verified 12/20/18 11:49) Unknown morphine Adverse Reaction (Verified 12/20/18 11:49) confusion Home Medications: Home Medications Medication Instructions Recorded Confirmed Last Taken Type Atenolol 100 mg PO DAILY MDD Hypertension 12/21/18 12/21/18 1 Day Ago History ~12/20/18 Atenolol 100 ng PO DAILY 12/21/18 12/21/18 1 Day Ago History ~12/20/18 Dicyclomine HCl 10 mg PO TID MDD IBS 12/21/18 12/21/18 1 Day Ago History ~12/20/18 10 mg HYDROcodone/APAP 5-325 [[place] 1 each PO Q6HR PRN #40 tablet 12/21/18 Unknown Rx 5/325] LORazepam [Ativan] 1 mg PO 4XD PRN 12/21/18 12/21/18 1 Day Ago History ~12/20/18 Omeprazole 40 mg PO DAILY 12/21/18 12/21/18 1 Day Ago History ~12/20/18 Ondansetron [Zofran ODT TAB] 12/21/18 Unknown History Ondansetron [Zofran ODT TAB] 12/21/18 2 Days Ago History ~12/19/18 4 mg Ondansetron [Zofran ODT TAB] 4 mg PO Q4H PRN 12/21/18 12/21/18 2 Days Ago History ~12/19/18 Ondansetron [Zofran ODT TAB] 4 mg PO Q4HR PRN 12/21/18 12/21/18 2 Days Ago History ~12/19/18 Rivaroxaban [Xarelto] 2.5 mg PO DAILY #90 tablet 12/21/18 Unknown Rx Sertraline HCl 100 mg PO DAILY 12/21/18 12/21/18 1 Day Ago History ~12/20/18 amLODIPine [Norvasc] 12/21/18 1 Day Ago History ~12/20/18 5 mg amLODIPine [Norvasc] 5 mg PO QDAY 12/21/18 12/21/18 1 Day Ago History ~12/20/18 5 mg azaTHIOprine [Imuran] 150 mg PO DAILY 12/21/18 12/21/18 1 Day Ago History ~12/20/18 cloNIDine [Catapres] 12/21/18 1 Day Ago History ~12/20/18 cloNIDine [Catapres] 0.2 mg PO DAILY 12/21/18 12/21/18 1 Day Ago History ~12/20/18 0.2 mg traMADol [Ultram 50 MG tab] 50 mg PO Q6H PRN #30 tablet 12/22/18 Unknown Rx Active Medications: Generic Name Dose Route Start Last Admin Trade Name Freq PRN Reason Stop Dose Admin Acetaminophen 650 mg 12/20/18 11:14 12/22/18 05:27 Tylenol PO 650 mg Q4H PRN Administration Pain MILD(1-3)/Fever >100.5/[place] Acetaminophen/Hydrocodone Bitart 1 each 12/21/18 00:43 12/22/18 11:50 [place] 5/325 PO 1 each Q4H PRN Administration Pain, Moderate (4-6) Amlodipine Besylate 5 mg 12/22/18 10:00 12/22/18 10:34 Norvasc PO 5 mg QDAY BELEN Administration Aspirin 81 mg 12/22/18 10:00 12/22/18 10:35 Halfprin Ec PO 81 mg QDAY [facility]EN Administration Atenolol 100 mg 12/22/18 10:00 12/22/18 10:34 Tenormin PO 100 mg QDAY BELEN Administration Azathioprine 150 mg 12/22/18 10:00 12/22/18 10:34 Imuran PO 150 mg DAILY BELEN Administration Clonidine HCl 0.1 mg 12/21/18 01:00 12/22/18 05:22 Catapres PO 0.1 mg Q6HR BELEN Administration Dicyclomine HCl 10 mg 12/21/18 14:00 12/22/18 10:36 Bentyl PO 10 mg TID BELEN Administration Hydralazine HCl 20 mg 12/21/18 00:44 Apresoline IV Q4H PRN Hypertension Labetalol HCl 20 mg 12/21/18 00:45 Normodyne IV Q2H PRN Hypertension Lorazepam 1 mg 12/21/18 11:11 12/22/18 10:42 Ativan PO 1 mg 4XD PRN Administration Anxiety Melatonin 5 mg 12/21/18 11:16 12/22/18 00:26 Melatonin PO 5 mg QHS PRN Administration Sleep Naloxone HCl 0.1 mg 12/21/18 00:41 Narcan 0.4 Mg/1 Ml IV Q2MIN PRN Res Rate </= 8 or 02 SAT < 92% Ondansetron HCl 4 mg 12/21/18 11:11 Zofran Odt PO Q4HR PRN Nausea And Vomiting Pantoprazole Sodium 40 mg 12/22/18 10:00 12/22/18 10:35 Protonix PO 40 mg DAILY BELNE Administration Pantoprazole Sodium 40 mg 12/22/18 10:00 12/22/18 10:35 Protonix PO 40 mg QDAY BELEN Administration Rivaroxaban 2.5 mg 12/22/18 10:00 12/22/18 10:35 Xarelto PO 2.5 mg QDAY BELEN Administration Protocol Sodium Chloride 10 ml 12/20/18 11:14 Sodium Chloride Flush Syringe 10 Ml IV PRN PRN LINE FLUSH Tramadol HCl 50 mg 12/22/18 11:00 Ultram PO Q6H PRN Pain, Moderate (4-6)
== END 2018-12-22 13:20 | disposition home or self-care (01) | DRG 253 ==
LOC: UNDOADMIN 10:04 → 4A 10:04 → CC1 12-21 00:53 → 4A 12-21 15:01
PROVIDERS: ADMIT Surgery Vascular Surgery; ATTEND Surgery Vascular Surgery
PROC: 04CL0ZZ Extirpation of Matter from Left Femoral Artery, Open Approach (ICD-10-PCS; principal; 2018-12-20)
PROC: 041K0JJ Bypass Right Femoral Artery to Left Femoral Artery with Synthetic Substitute, Open Approach (ICD-10-PCS; 2018-12-20)
PROC: 04WY0JZ Revision of Synthetic Substitute in Lower Artery, Open Approach (ICD-10-PCS; 2018-12-20)
DX: T82.898A Other specified complication of vascular prosthetic devices, implants and grafts, initial encounter (principal); Z68.1 Body mass index [BMI] 19.9 or less, adult; E44.0 Moderate protein-calorie malnutrition; I99.8 Other disorder of circulatory system; I73.9 Peripheral vascular disease, unspecified; F17.200 Nicotine dependence, unspecified, uncomplicated; J44.9 Chronic obstructive pulmonary disease, unspecified; I10 Essential (primary) hypertension; K21.9 Gastro-esophageal reflux disease without esophagitis; Z96.649 Presence of unspecified artificial hip joint; Y83.2 Surgical operation with anastomosis, bypass or graft as the cause of abnormal reaction of the patient, or of later complication, without mention of misadventure at the time of the procedure; Z79.899 Other long term (current) drug therapy; Z90.49 Acquired absence of other specified parts of digestive tract; Z90.710 Acquired absence of both cervix and uterus; Z90.722 Acquired absence of ovaries, bilateral; Z88.5 Allergy status to narcotic agent; Z88.1 Allergy status to other antibiotic agents; Y92.89 Other specified places as the place of occurrence of the external cause
CPT/HCPCS: 36415; 80048; 82962; 85014; 85018; 85025; 85610; 85730; 86850; 86900; 86901; 86920; 88304; 88311; 93005; 93010; G0378; C1757; C1768; J0690; J1644; J2370; J2405; J2704; J2710; J3010; J3490; J7030; J7040; J7120; J7500